=== PATIENT | male | born 1970 | race Caucasian/White ===

== ENCOUNTER 2017-05-21 08:20 | Emergency (ER) | payer SELFPAY ==
[~2017-05-21] VITALS: Ht 182.9 cm; Wt 86.2 kg
[2017-05-21] MEDS ORDERED: HYDROMORPHONE 1MG/1ML INJ IM STA (10:25)
[2017-05-21] MEDS ORDERED: ONDANSETRON HCL 4 MG ORAL DISINTEGRATING TAB PO ONE (10:30)
== END 2017-05-21 11:36 | disposition home or self-care (01) ==
LOC: ER 08:20
DX: L02.214 Cutaneous abscess of groin (principal)
CPT/HCPCS: 10061; 99283; J1170; 99284